=== PATIENT | female | born 1980 | race African-American/Black ===

== ENCOUNTER 2016-11-15 19:17 | Emergency (ER) | payer OTHER ==
[2016-11-15] MEDS ORDERED: FLONASE 0.05% N16 G1 (19:50)
[2016-11-15] MEDS ORDERED: SINGULAIR PO (19:50)
[2016-11-15] MEDS ORDERED: CLARITIN10 M3 PO (19:50)
== END 2016-11-15 20:35 | disposition home or self-care (01) ==
LOC: SED 19:17
DX: S50.12XA Contusion of left forearm, initial encounter (principal); S00.03XA Contusion of scalp, initial encounter; F41.9 Anxiety disorder, unspecified; Z79.899 Other long term (current) drug therapy; V49.50XA Passenger injured in collision with unspecified motor vehicles in traffic accident, initial encounter
CPT/HCPCS: 99283